=== PATIENT | male | born 1955 | race Caucasian/White ===

== ENCOUNTER 2023-12-07 12:49 | Outpatient (REF) | payer MEDICARE, BC, SELFPAY ==
[2023-12-08 18:18] LABS: Lyme Abs Screen <0.90 index
== END 2023-12-07 12:50 | disposition home or self-care (01) ==
LOC: HO.LAB 12:49
PROVIDERS: PCP Internal Medicine; Visit Provider Psychiatry & Neurology Neurology
DX: G51.0 Bell's palsy (principal)
CPT/HCPCS: 36415; 86617; 86618

== ENCOUNTER 2024-01-11 13:12 | Outpatient (RCR) | payer MEDICARE, BC, SELFPAY | END 2024-03-02 09:22 | disposition home or self-care (01) | LOC: HO.PT 13:12 | PROVIDERS: PCP Internal Medicine; Visit Provider Psychiatry & Neurology Neurology | DX: G51.0 Bell's palsy (principal) | CPT/HCPCS: 97110; 97140; 97161 ==